=== PATIENT | female | born 1945 | race Caucasian/White ===

== ENCOUNTER → 2016-05-21 | Outpatient (CLI) | payer OTHER, MEDICARE ==
--- NOTE | 2016-05-21 12:21 | DI ---
XR CXR 2VW PA/LAT,05/21/2016 11:07 AM: Clinical History: Severe persistent asthma with acute exacerbation. Previous Exam: April 10, 2016 Findings: PA and lateral views of the chest are obtained, and demonstrate clear lungs. The cardiomediastinum an d bony thorax are unremarkable. Impression: Normal chest.
[2016-05-21 12:35] LABS: BASOPHILS # (AUTO) 0.11 10*3/UL; EOSINOPHILS % (AUTO) 12.1 % (0-8); HEMATOCRIT 44.6 % (37.0-47.0); HEMOGLOBIN 15.4 g/dL (12.0-16.0); IMM GRAN % (AUTO) 0.2 % (0-5); IMM GRAN# (AUTO) 0.02 10*3/UL; LYMPHOCYTES # (AUTO) 3.31 10*3/uL; LYMPHOCYTES % (AUTO) 31.2 % (10-50); MEAN CORPUSCULAR HEMOGLOBIN 29.6 PG (27-31); MEAN CORPUSCULAR HGB CONC 34.5 g/dL (33-37); MEAN PLATELET VOLUME 8.9 FL (7.4-12.2); MONOCYTES # (AUTO) 0.58 10*3/UL (0.3-0.8); MONOCYTES % (AUTO) 5.5 % (5-15); NEUTROPHILS # (AUTO) 5.31 10*3/UL; RDW COEFFICIENT OF VARIATION 13.3 % (11.5-14.5); WHITE BLOOD COUNT 10.61 10^3/uL (4.8-10.8)
[2016-05-21 12:36] LABS: PLATELET MORPHOLOGY COMMENT NORMAL MORPHOLOGY (NORM)
[2016-05-21 13:07] LABS: ASPARTATE AMINO TRANSFERASE 27 IU/L (8-39); BILIRUBIN,TOTAL 0.9 mg/dL (0.3-1.2); BLOOD UREA NITROGEN 14 mg/dL (7-22); BUN/CREATININE RATIO 15.55 (6-20); CALCIUM 9.7 mg/dL (8.7-10.7); CHLORIDE 103 meq/L (98-112); CREATININE 0.9 mg/dL (0.50-1.20); EST GLOMERULAR FILTRATION > 60 (>60 ml/min/1.73m(2)); GLUCOSE 88 mg/dL (78-110); POTASSIUM 3.8 meq/L (3.8-5.2); SODIUM 140 meq/L (135-145); TOTAL PROTEIN 7.3 g/dL (6.1-8.0)
[2016-05-21 14:41] LABS: FREE T4 (FREE THYROXINE) 1.85 ng/dL (0.93-1.71)
== END ==
LOC: RAD 11:36
PROVIDERS: ATTEND Nurse Practitioner Family
DX: J45.51 Severe persistent asthma with (acute) exacerbation (principal); E03.9 Hypothyroidism, unspecified; I10 Essential (primary) hypertension; E78.5 Hyperlipidemia, unspecified
CPT/HCPCS: 36415; 71020; 80053; 84439; 84443; 85025; 94060

== ENCOUNTER 2016-07-04 08:40 | Inpatient (IN) | payer OTHER, MEDICARE ==
[2016-07-04] MEDS ORDERED: NORMAL SALINE 10 ML SYRINGE FLUSH IVP PRN (09:25)
[2016-07-04] MEDS ORDERED: IPRATROPIUM/ALBUTEROL SULFATE 3 ML NEB NEB ONE (09:31)
[2016-07-04] MEDS ORDERED: Sodium Chloride 0.9% 2,000 ML PRIMARY IV ONE (09:32)
[2016-07-04] MEDS ORDERED: Levofloxacin 750mg (Premix) 750 MG in Dextrose 1 BAG IV ONE (09:33)
[2016-07-04 09:39] LABS: BASOPHILS # (AUTO) 0.06 10*3/UL; BASOPHILS % (AUTO) 0.5 % (0-1); EOSINOPHILS # (AUTO) 0.59 10*3/UL; EOSINOPHILS % (AUTO) 4.9 % (0-8); HEMATOCRIT 46.1 % (37.0-47.0); HEMOGLOBIN 15.7 g/dL (12.0-16.0); LYMPHOCYTES # (AUTO) 1.03 10*3/uL; MEAN CORPUSCULAR HEMOGLOBIN 30.1 PG (27-31); MEAN CORPUSCULAR HGB CONC 34.1 g/dL (33-37); MEAN CORPUSCULAR VOLUME 88.5 FL (81-99); MEAN PLATELET VOLUME 8.8 FL (7.4-12.2); MONOCYTES # (AUTO) 0.52 10*3/UL (0.3-0.8); MONOCYTES % (AUTO) 4.3 % (5-15); NEUTROPHILS % (AUTO) 81.5 % (50-80); RED BLOOD COUNT 5.21 10^6/uL (4.20-5.40)
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
[2016-07-04 09:50] LABS: BLOOD UREA NITROGEN 13 mg/dL (7-22); BUN/CREATININE RATIO 14.44 (6-20); CALCIUM 9.2 mg/dL (8.7-10.7); EST GLOMERULAR FILTRATION > 60 (>60 ml/min/1.73m(2)); SERUM ALBUMIN 4.3 g/dL (3.5-4.8)
[2016-07-04 10:03] LABS: PLATELET MORPHOLOGY COMMENT NORMAL MORPHOLOGY (NORM); RBC MORPHOLOGY COMMENT NORMAL MORPHOLOGY (NORM); WBC MORPHOLOGY COMMENT NORMAL MORPHOLOGY (NORM)
--- NOTE | 2016-07-04 11:01 | DI ---
XR CXR 2VW PA/LAT,07/04/2016 9:29 AM: Clinical History: Cough, fevers and wheezing. Previous Exam: May 21, 2016 Findings: PA and lateral views of the chest are obtained, and demonstrates silhouetting of the left heart borde r. There is also a density seen on lateral view anteriorly. There is no evidence of effusion. The cardiomediastinum and bony thorax are unremarkable. Impression: Left lingular pneumonia.
--- NOTE | 2016-07-04 11:06 | EKG ---
[address] [address] Measurements Intervals [place] Rate: 115 P: 78 MN: 197 QRS: 76 QRSD: 82 T: 68 QT: 320 QTc: 388 Interpretive Statements SINUS TACHYCARDIA ABNORMAL RHYTHM ECG ST CHANGE OF EARLY REPOLARIZATION No previous ECG available for comparison Electronically Signed On 07-04-16 13:17:49 MDT by Michael Cesar [id number]
[2016-07-04] MEDS ORDERED: LIDOCAINE W/ SODIUM BICARB 0.5 ML SYR SUBD PRN (11:49)
[2016-07-04] MEDS: Sodium Chloride 0.9% 1,000 ML IV SCH (12:08)
--- NOTE | 2016-07-04 12:17 | PDOC ---
History and Physical - History of Present Illness Date and Time of Service: 07/04/2016 12:17 PM Chief Complaint: Cough of one-week duration, shortness of breath started last night History of Present Illness: This is a 71 years old female with medical history significant for history of asthma, hypertension, hypothyroidism and hyperlipidemia who came into the hospital with history of cough that started a week ago with some phlegm production described as green, last night things got worse with worsening shortness of breath and some tightness in the chest and because of that she came into the ER. Down in the ER it was noticed that she was febrile, chest x-ray showed lingual pneumonia she was given antibiotics and breathing treatment and she was admitted. There is no chest pain, no PND and no leg swelling. She did say that she was started on new medication budesonide which she tried the first dosage last night and she didn't like the effect of it. Past Medical History Medical History: 1. Hypertension. 2. Hypothyroidism. 3. Hyperlipidemia. 4. Allergic rhinitis. 5. Asthma Surgical History: 1. Cholecystectomy. 2. Total abdominal hysterectomy and bilateral salpingo-oophorectomy. 3. Sinus surgery Pertinent Family History: Mother had coronary artery disease, sister and father has asthma Past Social History: She smoked in college, occasionally drink, no drugs. Tobacco Use: Never Smoker Substance Use Type: None Alcohol Use: Rarely Medication / Allergies Home Medications: Home Medications Medication Instructions Recorded Confirmed Type Lansoprazole [Prevacid] 1 cap PO QD PRN #90 capsule 03/29/14 07/04/16 Clinic Trazodone HCl 1 tab PO HS #30 tab 03/29/14 07/04/16 Clinic Triamcinolone Acetonide [Nasacort] 2 spr NS QD #3 bottle 03/29/14 07/04/16 Clinic Fluticasone/Salmeterol [Advair Hfa] 2 puff INH BID #3 inhaler 04/28/15 07/04/16 Clinic Lisinopril 1 tab PO DAILY #90 tab 03/19/16 07/04/16 Clinic Pravastatin Sodium [Pravachol] 1 tab PO QHS #90 tab 03/19/16 07/04/16 Clinic Albuterol Neb Soln 0.021% 1 each NEB Q4H PRN #30 unit 04/10/16 07/04/16 Clinic Levothyroxine Sodium 1 tab PO QOD #45 tab 05/21/16 07/04/16 Clinic Albuterol Sulfate [Proair Hfa] 2 puff INH Q4-6H #3 inhaler 05/22/16 07/04/16 Clinic Allergies/Adverse Reactions: Allergies Allergy/AdvReac Type Severity Reaction Status Date / Time amoxicillin trihydrate Allergy Intermediate hives Verified 07/04/16 09:13 [From Augmentin] potassium clavula Allergy Intermediate hives Verified 07/04/16 09:13 *RETIRED-12/20/11 [From Augmentin] Sulfa (Sulfonamide Allergy Mild RASH Verified 07/04/16 09:13 Antibiotics) Review of Systems - Review of Systems All Systems: Reviewed & No Additional Complaints Except as Stated Exam - Vitals Vital Signs: Vital Signs Temperature 101.5 F Temperature Source Temporal Artery Scan Pulse Rate 104 Respiratory Rate 22 Blood Pressure 110/63 Pulse Ox 94 Weight 190 lb 12.8 oz - General General Appearance: POSITIVE: No Acute Distress, Obese - Head Head Exam: POSITIVE: Normal Inspection, Atraumatic - Eye Eye Exam: POSITIVE: Normal Appearance - ENT ENT Exam: POSITIVE: Normal Exam - Neck Neck Exam: POSITIVE: Normal Inspection - Respiratory Additional Respiratory Exam Details: There is decreased air entry with minimal wheeze. - Cardiovascular Cardiovascular Exam: POSITIVE: RRR - GI/Abdominal GI/Abdominal Exam: POSITIVE: Normal Bowel Sounds, Non Tender, Non Distended, Soft - Rectal Rectal Exam: POSITIVE: Deferred - External Exam: POSITIVE: Deferred - Extremities Extremities Exam: POSITIVE: Normal Inspection - Back Back Exam: POSITIVE: Normal Inspection - Neurological Neurological Exam: POSITIVE: Alert, Oriented x 3, CN II-XII Intact, Moves All Extremities Equally - Psychiatric Psychiatric Exam: POSITIVE: Normal Affect - Integumentary Integumentary Exam: POSITIVE: Normal Color Results - Labs CBC and BMP: 07/04/16 09:15 07/04/16 09:15 - EKG Data -: EKG Interpreted by Me Rate: Tachycardia - Imaging Status: Report Reviewed by Me (Chest x-ray showed left lingual pneumonia) Assessment and Plan - Patient Problems (1) LLL pneumonia Current Visit: Yes Status: Acute Comment: She was started on antibiotics will continue with antibiotics. Qualifiers: Pneumonia type: due to unspecified organism Qualifier Code(s): (J18.1) Lobar pneumonia, unspecified organism (2) Asthma Current Visit: Yes Status: Acute Comment: With her history of asthma we'll continue the bronchodilator treatment and I think I'll add some steroid in addition to the antibiotics (3) Hypertension Current Visit: Yes Status: Acute Comment: Same medications (4) Hypothyroidism Current Visit: Yes Status: Acute Comment: Same med (5) Hyperlipidemia Current Visit: Yes Status: Acute Comment: Same med
[2016-07-04] MEDS: methylPREDNISolone 40 MG/1 ML VIAL IVP SCH ×2 (12:32→20:34)
[2016-07-04] MEDS: ALBUTEROL SULFATE 2.5 MG/3 ML NEB SCH ×2 (14:51→19:33)
[2016-07-04] MEDS: FLUTICASONE INH SCH (20:15)
[2016-07-04] MEDS: SALMETEROL INH SCH (20:15)
[2016-07-04] MEDS: Pravastatin 80mg Tab PO SCH (20:34)
[2016-07-04] MEDS: traZODone Tab 50 MG TAB PO SCH (20:34)
[2016-07-04] MEDS: Montelukast Tab 10 MG TAB PO SCH (20:34)
[2016-07-05] MEDS: Sodium Chloride 0.9% 1,000 ML IV SCH (01:55)
[2016-07-05] MEDS: methylPREDNISolone 40 MG/1 ML VIAL IVP SCH ×3 (04:27→20:08)
[2016-07-05] MEDS: LEVOTHYROXINE 137 MCG TABLET PO SCH (05:35)
[2016-07-05] MEDS: ALBUTEROL SULFATE 2.5 MG/3 ML NEB SCH ×4 (06:44→18:49)
[2016-07-05] MEDS: SALMETEROL INH SCH ×2 (06:52→18:49)
[2016-07-05] MEDS: FLUTICASONE INH SCH ×2 (06:52→18:49)
[2016-07-05] MEDS: LISINOPRIL 10 MG TABLET PO SCH (08:09)
[2016-07-05] MEDS: TRIAMCINOLONE ACETONIDE NS SCH (08:09)
[2016-07-05] MEDS ORDERED: Levofloxacin 750mg (Premix) 750 MG in Dextrose 1 BAG IV SCH (09:00)
[2016-07-05 10:54] LABS: BASOPHILS # (AUTO) 0.01 10*3/UL; BASOPHILS % (AUTO) 0.1 % (0-1); EOSINOPHILS # (AUTO) 0 10*3/UL; EOSINOPHILS % (AUTO) 0 % (0-8); HEMOGLOBIN 13.8 g/dL (12.0-16.0); LYMPHOCYTES # (AUTO) 0.83 10*3/uL; MEAN CORPUSCULAR HEMOGLOBIN 29.7 PG (27-31); MEAN CORPUSCULAR HGB CONC 33.7 g/dL (33-37); MEAN CORPUSCULAR VOLUME 88.4 FL (81-99); MEAN PLATELET VOLUME 8.8 FL (7.4-12.2); MONOCYTES # (AUTO) 0.54 10*3/UL (0.3-0.8); NEUTROPHILS # (AUTO) 12.17 10*3/UL; NEUTROPHILS % (AUTO) 89.4 % (50-80); RED BLOOD COUNT 4.64 10^6/uL (4.20-5.40)
[2016-07-05 10:55] LABS: PLATELET MORPHOLOGY COMMENT NORMAL MORPHOLOGY (NORM); RBC MORPHOLOGY COMMENT NORMAL MORPHOLOGY (NORM); WBC MORPHOLOGY COMMENT NORMAL MORPHOLOGY (NORM)
[2016-07-05 11:35] LABS: CALCIUM 9.1 mg/dL (8.7-10.7); SERUM ALBUMIN 3.9 g/dL (3.5-4.8)
--- NOTE | 2016-07-05 12:51 | PDOC(PROG) ---
Interval History: Patient had a good night's sleep she still has pretty severe expiratory wheezes she does have a history of asthma but has not been on an inhaler to requiring some oxygen Objective : Data - Labs CBC and BMP: 07/05/16 10:50 07/05/16 10:50 Labs - Last 24 Hours: Laboratory Results 07/05/16 Range/Units 10:50 WBC 13.60 H (4.8-10.8) 10^3/uL RBC 4.64 (4.20-5.40) 10^6/uL Hgb 13.8 (12.0-16.0) g/dL Hct 41.0 (37.0-47.0) % MCV 88.4 (81-99) FL MCH 29.7 (27-31) PG MCHC 33.7 (33-37) g/dL RDW Std Deviation 42.1 (39-50) fL RDW Coeff of [place]sey 13.3 (11.5-14.5) % Plt Count 204 (140-350) 10*3/uL MPV 8.8 (7.4-12.2) FL Immature Gran % (Auto) 0.4 (0-5) % Neut % (Auto) 89.4 H (50-80) % Lymph % (Auto) 6.1 L (10-50) % [place] % (Auto) 4.0 L (5-15) % Eos % (Auto) 0 (0-8) % Baso % (Auto) 0.1 (0-1) % Immature Gran # (Auto) 0.05 10*3/UL Neut # (Auto) 12.17 10*3/UL Lymph # (Auto) 0.83 10*3/uL [place] # (Auto) 0.54 (0.3-0.8) 10*3/UL Eos # (Auto) 0 10*3/UL Baso # (Auto) 0.01 10*3/UL WBC Morphology Comment Normal morphology (NORM) Plt Morphology Comment Normal morphology (NORM) RBC Morph Comment Normal morphology (NORM) Sodium 139 (135-145) meq/L Potassium 3.9 (3.8-5.2) meq/L Chloride 108 (98-112) meq/L Carbon Dioxide 18 L (23-33) meq/L Anion Gap 13 (5-20) BUN 15 (7-22) mg/dL Creatinine 1.0 (0.50-1.20) mg/dL Estimated GFR 55 (>60 ml/min/1.73m(2)) BUN/Creatinine Ratio 15.00 (6-20) Glucose 272 H (78-110) mg/dL Calculated Osmolality 298.0 H (267-292) mOsm/kg Calcium 9.1 (8.7-10.7) mg/dL Total Bilirubin 0.6 (0.3-1.2) mg/dL AST 22 (8-39) IU/L ALT 13 D (9-52) IU/L Alkaline Phosphatase 74 (38-126) IU/L Total Protein 6.8 (6.1-8.0) g/dL Albumin 3.9 (3.5-4.8) g/dL Globulin 2.9 (2.50-4.10) g/dL Albumin/Globulin Ratio 1.30 (1.3-2.0) mg/g Objective : Exam - General General Appearance: Cooperative - Head Head Exam: Normal Inspection - Eye Eye Exam: Normal Appearance - Respiratory Additional Respiratory Exam Details: Bilateral expiratory wheezes - Cardiovascular Cardiovascular Exam: RRR, No Murmur, No Clicks, No Gallops - GI/Abdominal GI/Abdominal Exam: Normal Bowel Sounds, Non Tender, Non Distended Assessment and Plan - Patient Problems (1) Asthma Current Visit: Yes Status: Acute Comment: This very nice 71-year-old female who also has seen core feeder in the past they gave her an inhaler but she has never used so now she is on Advair IV steroids and antibiotics also order a CT scan of her chest she has a smoking history and multiple asthma exacerbations (2) LLL pneumonia Current Visit: Yes Status: Acute Comment: Continue Levaquin patient is not ready to be discharged home most likely have to spend another night here in the hospital she was wheezing and WBCs are elevated Qualifiers: Pneumonia type: due to unspecified organism Qualifier Code(s): (J18.1) Lobar pneumonia, unspecified organism
--- NOTE | 2016-07-05 17:10 | DI ---
CT CTA CHEST NONCORONARY W/WO,07/05/2016 11:13 AM: Clinical History: Shortness of breath. Previous Exam: None at this facility. Findings: Multiple helically acquired CT images are obtained through the chest following a the intravenous admi nistration of 75 mL of Isovue 300, and demonstrate mild subsegmental atelectasis in the left lingula. The upper abdomen is unremarkable. Pulmonary arteries are normal without filling defect or truncation to suggest pulmonary embolism. There is mild scarring within the lung apices. Skeletal structures are unremarkable. There is mild lymphadenopathy within the mediastinum. Impression: 1. No evidence of pulmonary embolism.
[2016-07-05] MEDS: Montelukast Tab 10 MG TAB PO SCH (20:07)
[2016-07-05] MEDS: Pravastatin 80mg Tab PO SCH (20:07)
[2016-07-05] MEDS: NORMAL SALINE 10 ML SYRINGE FLUSH IVP PRN (20:09)
[2016-07-05] MEDS: traZODone Tab 50 MG TAB PO SCH (21:15)
[2016-07-06] MEDS: NORMAL SALINE 10 ML SYRINGE FLUSH IVP PRN (04:49)
[2016-07-06] MEDS: methylPREDNISolone 40 MG/1 ML VIAL IVP SCH (04:49)
[2016-07-06] MEDS: LEVOTHYROXINE 137 MCG TABLET PO SCH (05:18)
[2016-07-06 05:52] LABS: BASOPHILS # (AUTO) 0.01 10*3/UL; BASOPHILS % (AUTO) 0.1 % (0-1); EOSINOPHILS # (AUTO) 0 10*3/UL; EOSINOPHILS % (AUTO) 0 % (0-8); HEMATOCRIT 40.5 % (37.0-47.0); HEMOGLOBIN 13.5 g/dL (12.0-16.0); LYMPHOCYTES # (AUTO) 0.99 10*3/uL; MEAN CORPUSCULAR HGB CONC 33.3 g/dL (33-37); MEAN PLATELET VOLUME 9.1 FL (7.4-12.2); MONOCYTES % (AUTO) 4.2 % (5-15); NEUTROPHILS # (AUTO) 17.36 10*3/UL; NEUTROPHILS % (AUTO) 90.2 % (50-80)
[2016-07-06 05:56] LABS: PLATELET MORPHOLOGY COMMENT NORMAL MORPHOLOGY (NORM); WBC MORPHOLOGY COMMENT NORMAL MORPHOLOGY (NORM)
[2016-07-06 05:57] LABS: RBC MORPHOLOGY COMMENT NORMAL MORPHOLOGY (NORM)
[2016-07-06 06:07] LABS: BLOOD UREA NITROGEN 24 mg/dL (7-22); CALCIUM 8.8 mg/dL (8.7-10.7); EST GLOMERULAR FILTRATION > 60 (>60 ml/min/1.73m(2)); SERUM ALBUMIN 3.6 g/dL (3.5-4.8)
[2016-07-06] MEDS: ALBUTEROL SULFATE 2.5 MG/3 ML NEB SCH ×4 (06:46→19:25)
[2016-07-06] MEDS: SALMETEROL INH SCH ×2 (06:47→19:25)
[2016-07-06] MEDS: FLUTICASONE INH SCH ×2 (06:47→19:25)
[2016-07-06] MEDS ORDERED: Sodium Chloride 0.9% 500 ML IV ONE (09:00)
[2016-07-06] MEDS ORDERED: Levofloxacin 750mg (Premix) 750 MG in Dextrose 1 BAG IV SCH (09:00)
[2016-07-06] MEDS: predniSONE Tab 20 MG TAB PO SCH (09:11)
[2016-07-06] MEDS: LISINOPRIL 10 MG TABLET PO SCH (09:11)
[2016-07-06] MEDS: TRIAMCINOLONE ACETONIDE NS SCH (09:16)
--- NOTE | 2016-07-06 09:54 | DI ---
CT ABD W/CN AND PELVIS W/CN,07/06/2016 9:05 AM: Clinical History: Right upper quadrant pain Previous Exam: None at this facility. Findings: Multiple helically acquired CT images are obtained through the abdomen and pelvis following the intra venous administration of 80 mL of Omnipaque 300, and demonstrate some mild subsegmental atelectasis i n the lung bases. The liver is normal. The gallbladder is not seen. The common bile duct is normal in caliber. The pancreas, adrenals and spleen are unremarkable. There is no mesenteric nor retroperitoneal lymphadenopathy. The appendix is normal. The urinary bladder is decompressed, but grossly normal. Impression: 1. No acute intra-abdominal pathology. 2. Inadequate evaluation of the gallbladder as this was either decompressed, or surgically absent.
--- NOTE | 2016-07-06 10:17 | EKG ---
[address] [address] Measurements Intervals [place] Rate: 87 P: 44 MO: 203 QRS: 28 QRSD: 82 T: 43 QT: 358 QTc: 403 Interpretive Statements SINUS RHYTHM Compared to ECG 07/04/2016 09:05:53 Sinus tachycardia no longer present Early repolarization no longer present Electronically Signed On 07-06-16 11:14:17 MDT by Michael Cesar [id number]
--- NOTE | 2016-07-06 11:44 | PDOC(PROG) ---
Interval History: Patient stated she has some pain under her right breast on physical exam when I push on it and it seems to appear to be musculoskeletal and I believe from her asthma exacerbation CT scan of the chest abdomen and pelvis were all negative no PE troponins are negative EKG no acute changes. No nausea no vomiting patient still wheezing Objective : Data - Labs CBC and BMP: 07/06/16 05:28 07/06/16 05:28 Labs - Last 24 Hours: Laboratory Results 07/06/16 07/06/16 Range/Units 05:28 10:15 WBC 19.23 H (4.8-10.8) 10^3/uL RBC 4.50 (4.20-5.40) 10^6/uL Hgb 13.5 (12.0-16.0) g/dL Hct 40.5 (37.0-47.0) % MCV 90.0 (81-99) FL MCH 30.0 (27-31) PG MCHC 33.3 (33-37) g/dL RDW Std Deviation 44.3 (39-50) fL RDW Coeff of [place] 13.7 (11.5-14.5) % Plt Count 216 (140-350) 10*3/uL MPV 9.1 (7.4-12.2) FL Immature Gran % (Auto) 0.4 (0-5) % Neut % (Auto) 90.2 H (50-80) % Lymph % (Auto) 5.1 L (10-50) % [place] % (Auto) 4.2 L (5-15) % Eos % (Auto) 0 (0-8) % Baso % (Auto) 0.1 (0-1) % Immature Gran # (Auto) 0.07 10*3/UL Neut # (Auto) 17.36 10*3/UL Lymph # (Auto) 0.99 10*3/uL [place] # (Auto) 0.80 (0.3-0.8) 10*3/UL Eos # (Auto) 0 10*3/UL Baso # (Auto) 0.01 10*3/UL WBC Morphology Comment Normal morphology (NORM) Plt Morphology Comment Normal morphology (NORM) RBC Morph Comment Normal morphology (NORM) Sodium 137 (135-145) meq/L Potassium 4.5 (3.8-5.2) meq/L Chloride 107 (98-112) meq/L Carbon Dioxide 23 (23-33) meq/L Anion Gap 7 (5-20) BUN 24 H (7-22) mg/dL Creatinine 0.8 (0.50-1.20) mg/dL Estimated GFR > 60 (>60 ml/min/1.73m(2)) BUN/Creatinine Ratio 30.00 H (6-20) Glucose 150 H (78-110) mg/dL Calculated Osmolality 290.0 (267-292) mOsm/kg Calcium 8.8 (8.7-10.7) mg/dL Total Bilirubin 0.6 (0.3-1.2) mg/dL AST 19 (8-39) IU/L ALT 15 (9-52) IU/L Alkaline Phosphatase 67 (38-126) IU/L Troponin I < 0.012 (< 0.040) ng/mL Total Protein 6.5 (6.1-8.0) g/dL Albumin 3.6 (3.5-4.8) g/dL Globulin 2.9 (2.50-4.10) g/dL Albumin/Globulin Ratio 1.20 L (1.3-2.0) mg/g Objective : Exam - General General Appearance: Cooperative - Respiratory Additional Respiratory Exam Details: Bilateral expiratory wheezes slightly improved from yesterday but still present very tight - Cardiovascular Cardiovascular Exam: RRR, No Murmur, No Clicks, No Gallops - GI/Abdominal GI/Abdominal Exam: Normal Bowel Sounds, Non Distended, Soft Additional GI/Abdominal Exam Details: Tenderness under her right breast musculoskeletal skeleton may be costochondritis - Extremities Extremities Exam: No Clubbing Present, No Edema Present Assessment and Plan - Patient Problems (1) Asthma Current Visit: Yes Status: Acute Comment: Asthma exacerbation continue by mouth steroids and neb treatments and inhalers CT scan of the chest believe does not reveal pneumonia and just atelectasis I believe the patient had bronchitis with the asthma exacerbation (2) LLL pneumonia Current Visit: Yes Status: Acute Comment: No infiltrate on CT scan most likely bronchitis Qualifiers: Pneumonia type: due to unspecified organism Qualifier Code(s): (J18.1) Lobar pneumonia, unspecified organism
[2016-07-06] MEDS: BUDESONIDE 0.5 MG/2 ML NEB SCH (19:25)
[2016-07-06] MEDS: traZODone Tab 50 MG TAB PO SCH (20:06)
[2016-07-06] MEDS: Pravastatin 80mg Tab PO SCH (20:06)
[2016-07-06] MEDS: Montelukast Tab 10 MG TAB PO SCH (20:06)
[2016-07-07 04:57] VITALS: RESP 20
[2016-07-07] MEDS: LEVOTHYROXINE 137 MCG TABLET PO SCH ×2 (05:17→06:34)
[2016-07-07] MEDS: ALBUTEROL SULFATE 2.5 MG/3 ML NEB SCH (06:24)
[2016-07-07] MEDS: BUDESONIDE 0.5 MG/2 ML NEB SCH (06:25)
[2016-07-07] MEDS: FLUTICASONE INH SCH (06:26)
[2016-07-07] MEDS: SALMETEROL INH SCH (06:26)
[2016-07-07 06:49] VITALS: TEMP 97.3
[2016-07-07 07:44] LABS: BASOPHILS # (AUTO) 0.02 10*3/UL; BASOPHILS % (AUTO) 0.1 % (0-1); EOSINOPHILS # (AUTO) 0.01 10*3/UL; EOSINOPHILS % (AUTO) 0.1 % (0-8); HEMATOCRIT 42.2 % (37.0-47.0); HEMOGLOBIN 14.1 g/dL (12.0-16.0); LYMPHOCYTES # (AUTO) 2.53 10*3/uL; MEAN CORPUSCULAR HGB CONC 33.4 g/dL (33-37); MEAN CORPUSCULAR VOLUME 89.8 FL (81-99); MEAN PLATELET VOLUME 8.6 FL (7.4-12.2); MONOCYTES # (AUTO) 1.04 10*3/UL (0.3-0.8); MONOCYTES % (AUTO) 7.7 % (5-15); NEUTROPHILS # (AUTO) 9.85 10*3/UL; NEUTROPHILS % (AUTO) 72.5 % (50-80)
[2016-07-07 07:47] LABS: PLATELET MORPHOLOGY COMMENT NORMAL MORPHOLOGY (NORM); RBC MORPHOLOGY COMMENT NORMAL MORPHOLOGY (NORM); WBC MORPHOLOGY COMMENT NORMAL MORPHOLOGY (NORM)
[2016-07-07 07:56] LABS: BLOOD UREA NITROGEN 22 mg/dL (7-22); BUN/CREATININE RATIO 24.44 (6-20); CALCIUM 8.7 mg/dL (8.7-10.7); EST GLOMERULAR FILTRATION > 60 (>60 ml/min/1.73m(2)); MAGNESIUM 2.3 mg/dL (1.6-2.4); SERUM ALBUMIN 3.7 g/dL (3.5-4.8)
[2016-07-07] MEDS: LISINOPRIL 10 MG TABLET PO SCH (08:18)
[2016-07-07] MEDS: TRIAMCINOLONE ACETONIDE NS SCH (08:18)
[2016-07-07] MEDS: predniSONE Tab 20 MG TAB PO SCH (08:18)
--- NOTE | 2016-07-07 08:49 | DCSUMMARY ---
Hospitalization Summary Hospital Course: Final Discharge Diagnosis: Current Visit Problems Problem Status Priority Diagnosed Code Asthma Acute J45.909 Hyperlipidemia Acute E78.5 Hypertension Acute I10 Hypothyroidism Acute E03.9 LLL pneumonia Acute J18.1 Diagnostic Data, Laboratory Data, and Procedures of Signifigance: Past Medical History Medical History: 1. Hypertension. 2. Hypothyroidism. 3. Hyperlipidemia. 4. Allergic rhinitis. 5. Asthma Surgical History: 1. Cholecystectomy. 2. Total abdominal hysterectomy and bilateral salpingo-oophorectomy. 3. Sinus surgery Pertinent Family History: Mother had coronary artery disease, sister and father has asthma Past Social History: She smoked in college, occasionally drink, no drugs. Tobacco Use: Never Smoker Substance Use Type: None Alcohol Use: Rarely Course of Hospitalization: This very nice 71-year-old female asked medical history for hypertension, asthma , hypothyroidism and hyperlipidemia with the productive cough and ultimately diagnosed with the asthma exacerbation and right and lingular pneumonia at this point according to the CAT scan that done I am not sure she does have pneumonia but definitely bronchitis she has gotten much better the wheezing is minimal she is now on 40 of prednisone a day for the next 5 days she will be using her inhaler twice a day plus Pulmicort dual nebs. She really wants to go home she will finish her 3 day course of Levaquin I also gave her 2 days worth of the potassium since it was marginal I've instructed her to come back to the ER if her wheezing worsens her lungs get tight. She did not tell us that she wears a CPAP at home she has not been aware when here and during the day she does not require oxygen desats with when she is ambulating according to general respiratory therapy that performed her her desat walk study she will be discharged home in stable and improved condition. She says she feels much better she feels her normal self and is ready to be discharged. She did complain of a pain under her right breast but on palpation it is musculoskeletal in CT scan of her chest abdomen and pelvis are within normal limits troponin was negative as well as EKG On the date of discharge, the patient was examined: Gen.: No acute distress, alert, nontoxic Heart: Regular rate and rhythm, no murmurs, clicks, gallops, or rubs Lungs: Minimal wheezing bilaterally on x-ray on expiration but significantly improved compared to the first that I saw her breathing is nonlabored Abdomen/GI: Normal tones on auscultation, soft, nontender, nondistended Musculoskeletal/extremities: No clubbing, cyanosis, or edema Vitals reviewed and are listed below Assessment and Plan: 1. As per discharge assessments above 2. Disposition: Home 3. Condition on discharge, stable and improved. 4. Diet: regular diet 5. Activities: resume normal activities as tolerated try to stay away from triggers that exacerbate your asthma 6. Follow-Up: 1. PCP she will see her primary care physician before you being released to go back to work 2. 7. Medications at the Time of Discharge: Home Medications Medication Instructions Recorded Confirmed Type Lansoprazole [Prevacid] 1 cap PO QD PRN #90 capsule 03/29/14 07/04/16 Clinic Trazodone HCl 1 tab PO HS #30 tab 03/29/14 07/04/16 Clinic Triamcinolone Acetonide [Nasacort] 2 spr NS QD #3 bottle 03/29/14 07/04/16 Clinic Fluticasone/Salmeterol [ADVAIR HFA] 2 puff INH BID #3 inhaler 04/28/15 07/04/16 Clinic Lisinopril 1 tab PO DAILY #90 tab 03/19/16 07/04/16 Clinic Pravastatin Sodium [Pravachol] 1 tab PO QHS #90 tab 03/19/16 07/04/16 Clinic Albuterol Neb Soln 0.021% 1 each NEB Q4H PRN #30 unit 04/10/16 07/04/16 Clinic Levothyroxine Sodium 1 tab PO QOD #45 tab 05/21/16 07/04/16 Clinic Albuterol Sulfate [Proair Hfa] 2 puff INH Q4-6H #3 inhaler 05/22/16 07/04/16 Clinic Montelukast Sodium 10 mg PO BEDTIME 07/04/16 07/04/16 History Levofloxacin Tab [Levaquin Tab] 750 mg PO DAILY #3 tab 07/07/16 Rx Potassium Chloride [Klor-Con] 40 meq PO BID 2 Days 07/07/16 Rx predniSONE Tab [Deltasone Tab] 40 mg PO DAILY 5 Days 07/07/16 Rx 8. Time, care, counseling and coordination of care for this discharge is greater than 30 minutes. Exam - Vitals Vital Signs: Vital Signs Temperature 97.3 F Temperature Source Temporal Artery Scan Pulse Rate [Apical] 96 Pulse Rate [Pulse Oximeter] 76 Pulse Rate 88 Respiratory Rate 20 Blood Pressure [Left Arm] 145/78 Blood Pressure [Left Arm] 127/52 Blood Pressure 110/63 Pulse Ox 92 Oxygen Flow Rate 1 Oxygen Delivery Method Room Air Height 5 ft 6 in Weight 89.584 kg Patient Problems - Patient Problem List (1) Asthma Current Visit: Yes Status: Acute (2) LLL pneumonia Current Visit: Yes Status: Acute Qualifiers: Pneumonia type: due to unspecified organism Qualifier Code(s): (J18.1) Lobar pneumonia, unspecified organism
[2016-07-07] MEDS ORDERED: POTASSIUM CHLORIDE 20 MEQ TAB PO SCH (09:00)
== END 2016-07-07 10:16 | disposition home or self-care (01) | DRG 195 ==
LOC: ER 08:40 → MED/SURG 10:52
PROVIDERS: ADMIT Internal Medicine; ATTEND Internal Medicine
DX: J18.9 Pneumonia, unspecified organism (principal); J45.909 Unspecified asthma, uncomplicated; E78.5 Hyperlipidemia, unspecified; I10 Essential (primary) hypertension; E03.9 Hypothyroidism, unspecified
CPT/HCPCS: 36415; 71020; 80053; 83605; 83880; 85025; 85610; 87040; 87804; 93005; 93010; 94640; 96361; 96365; 99284 ×2; J7620; 71275; 74177; 83735; 84443; 84484; 87070; 87077; 87186; 87205; 94761; J2920; J7030; J7040; J7512; J7626

== ENCOUNTER → 2016-07-17 | Outpatient (CLI) | payer OTHER, BC | LOC: MMPC 09:00 | PROVIDERS: ATTEND Nurse Practitioner Family | DX: J45.50 Severe persistent asthma, uncomplicated (principal); E78.5 Hyperlipidemia, unspecified; E03.9 Hypothyroidism, unspecified; I10 Essential (primary) hypertension; K21.9 Gastro-esophageal reflux disease without esophagitis | CPT/HCPCS: 99214; G0463 ==

== ENCOUNTER → 2016-09-24 | Outpatient (CLI) | payer OTHER, MEDICARE ==
[2016-09-24 09:24] LABS: BLOOD UREA NITROGEN 18 mg/dL (7-22); CALCIUM 9.1 mg/dL (8.7-10.7); CHOL/HDL RATIO 3.68 RATIO (0-4.0); EST GLOMERULAR FILTRATION > 60 (>60 ml/min/1.73m(2)); GAMMA GLUTAMYL TRANSPEPTIDASE 16 IU/L (8-78); HDL CHOLESTEROL 45 mg/dL (40-150); SERUM CHOLESTEROL 166 mg/dL (120-200)
== END ==
LOC: LAB 08:52
PROVIDERS: ATTEND Nurse Practitioner Family
DX: E78.5 Hyperlipidemia, unspecified (principal); I10 Essential (primary) hypertension; E03.9 Hypothyroidism, unspecified
CPT/HCPCS: 36415; 80048; 82247; 82465; 82550; 82977; 83718; 84075; 84450; 84460; 84478

== ENCOUNTER → 2016-09-27 | Outpatient (CLI) | payer OTHER, MEDICARE | LOC: MMPC 09:00 | PROVIDERS: ATTEND Nurse Practitioner Family | DX: H25.093 Other age-related incipient cataract, bilateral (principal); J45.50 Severe persistent asthma, uncomplicated; J30.2 Other seasonal allergic rhinitis; F32.0 Major depressive disorder, single episode, mild; F41.1 Generalized anxiety disorder; E78.5 Hyperlipidemia, unspecified; I10 Essential (primary) hypertension; K21.9 Gastro-esophageal reflux disease without esophagitis; E03.9 Hypothyroidism, unspecified; M65.341 Trigger finger, right ring finger | CPT/HCPCS: 99214; G0463 ==

== ENCOUNTER 2017-10-03 13:25 | Observation (INO) ==
[2017-10-03] MEDS ORDERED: THROMBIN (BOVINE) 20,000 UNIT KIT TOPICAL ONE (13:26)
[2017-10-03] MEDS ORDERED: Vancomycin Inj 1gm vial ONE (13:38)
[2017-10-03] MEDS ORDERED: Sodium Chloride 0.9% 250 ML IV ONE ×2 (13:38→16:20)
[2017-10-03] MEDS ORDERED: LIDOCAINE W/ SODIUM BICARB 0.5 ML SYR SUBD ONE (13:52)
[2017-10-03] MEDS ORDERED: diphenhydrAMINE 50 MG/1 ML VIAL ONE (15:14)
[2017-10-03] MEDS ORDERED: diphenhydrAMINE 50 MG/1 ML VIAL IVP ONE (15:22)
[2017-10-03] MEDS ORDERED: IPRATROPIUM/ALBUTEROL SULFATE 3 ML NEB NEB ONE ×2 (15:35→15:53)
--- NOTE | 2017-10-03 16:12 | EKG ---
[address] [address] Measurements Intervals [place] Rate: 70 P: 45 AR: 236 QRS: 54 QRSD: 83 T: 52 QT: 403 QTc: 423 Interpretive Statements SINUS RHYTHM WITH FIRST DEGREE AV BLOCK POSSIBLE ANTERIOR MYOCARDIAL INFARCTION PROBABLY OLD, MAY BE LEAD POSITIONING Compared to ECG 07/06/2016 10:16:42 First degree AV block now present Myocardial infarct finding now present Electronically Signed On 10-03-17 17:37:38 MDT by Michael Cesar [id number]
[2017-10-03] MEDS ORDERED: MIDAZOLAM 5 MG/1 ML ONE (16:20)
[2017-10-03] MEDS ORDERED: LIDOCAINE MPF 2% - 5 ML (20 MG/1 ML) ONE ×2 (16:20→19:16)
[2017-10-03] MEDS ORDERED: fentaNYL Inj 250 MCG/5 ML VIAL ONE (16:20)
[2017-10-03] MEDS ORDERED: Propofol 1,000 MG/100 ML VIAL IV ONE (16:20)
[2017-10-03] MEDS ORDERED: Lactated Ringers 1,000 ML PRIMARY IV ONE ×2 (16:52→19:04)
[2017-10-03] MEDS ORDERED: BACITRACIN 50,000 UNIT VIAL IRRIG ONE (17:22)
[2017-10-03] MEDS ORDERED: Sodium Chloride 0.9% vial 10 ML ONE (17:22)
[2017-10-03] MEDS ORDERED: SUCCINYLCHOLINE CHLORIDE 20 MG/1 ML - 10 ML ONE (17:30)
[2017-10-03] MEDS ORDERED: HYDROmorphone 2 MG/1 ML ONE (18:27)
--- NOTE | 2017-10-03 19:25 | OPNOTE.NEU ---
Operative Note Surgeon: Benny Connolly MD Data Sme: Cristian Wallace PA-C Procedure Date: 10/03/17 Preoperative Diagnosis: C6-7 Herniated disc with radiculopathy Postoperative Diagnosis: Same Procedure: C6-7 Anterior Cervical Decompression and Fusion. 1. Anterior cervical decompression; . 2. Anterior cervical arthrodesis; (63600). 3. Allograft structural graft placement; . 4. Preparation of bone graft: A. Local autograft, same incision; 25131-30. B. [place] of morselized iliac crest autograft, separate incision; . C. [place] of bone marrow aspirate, iliac crest; . D. Addition of osteopromotive calcium compound; allograft DBM; . 5. Anterior Cervical Instrumentation; 02074. 6. Intraoperative microsurgical technique, microscopy; 06637. 7. Intraoperative fluoroscopy, 17511-20-QF. 8. Continuous intraoperative motor and sensory neural monitoring Procedure Codes - Neurosurgery: 47901, 44879, 12643, 38783-40, 30851-13, 17108- 59, 01501-63, 27032-03-EI Estimated Blood Loss (mL): Minimal Fluids: See anesthesia record Complications: None Findings: Herniated disc at C6-7 on the right. Indications for the Procedure: Cervical radiculopathy with triceps weakness Description of Procedure: Procedure(s): We discussed the procedure, risks, advantages and disadvantages of surgical intervention at length. To prevent further pain, disability and potential progression of neurologic deficits, the patient would like to proceed with surgery. INTRODUCTION: After obtaining informed consent, careful consideration of the pre -operative studies and evaluation, the patient asked to proceed with surgery.The patient was taken to the operating room, given an anesthetic, positioned and prepared for surgery. All pressure points were meticulously padded and great care was taken to insure the patient was appropriately positioned to avoid any abnormal strain on the extremities or any other area. The operative region was prepared with iodine solution and isolated aseptically using routine sterile draping. POSITION / APPROACH: The patient was placed in the supine position such that an anterior approach could be taken to the cervical levels. EXPOSURE: A right transverse neck incision at the abnormal level which was confirmed using fluoroscopy was made through skin, subcutaneous fat and the platysma muscle. Using sharp and blunt dissection, the anterior spine was exposed medial to the sternocleidomastoid muscle and carotid sheath and the longus coli muscles were carefully reflected off the vertebrae using electrocautery and a deep self-retaining retractor was place beneath them. Thereafter, distraction pins were place within the vertebral bodies above and below the abnormal levels. The inner space was then distracted to improve exposure during the decompression. DECOMPRESSION: While distracting the interspace, a radical discectomy was performed. After removal of the disk using curettes considerable posterior osteophytosis was encountered particularly on the left and a large disc herniation was identified. The osteophyte was removed using a high speed drill equipped with a manju bur, microsurgical technique and the intraoperative microscope for visualization. There was clear evidence of compression upon the exiting nerve root and spinal cord. The posterior longitudinal ligament was taken down and wide foraminotomies were fashioned on both sides. The epidural space was explored extensively confirming no further compression upon the neural elements. ARTHRODESIS: After the decompression, the height of the inner space was measured and an allograft bone graft was selected which would fit snuggly within the space. The graft was loaded with bone graft which was prepared as described. The graft was placed using the fluoroscope to assess the graft position so that it could be countersunk appropriately. HARVEST / PREPARATION of BONE GRAFT: The "bone graft" was prepared from the patient's own bone derived from the left hip collected by curetting bone from the hip through a separate slab incision(-03047). This morselized bone was admixed with bone marrow aspirate also obtained from the hip (-54002). Autologous local bone which was removed during the decompression through the same incision used for the fusion was stripped of surrounding soft tissues, morselized (-74418) and mixed with osteopromotive calcium compound as well as allograft demineralized bone matrix ([id number]), and this was combined with the previously described hip graft and concentrated bone marrow aspirate to form the "bone graft." ANTERIOR PLATE INSTRUMENTATION: Having completed the decompression and placement of the interbody spacers, an Alphatec Trestle plate was selected which spanned the levels and also could be contoured to the anterior aspect of the patient's cervical spine. Osteophytes along the anterior spine were removed to allow the plate to conform to the spine appropriately. The plate was then secured to the spine using 14 mm screws, all of which were locked into position using the locking mechanism of the plate. Additional bone graft material was placed around the plate and around the implanted spacer within the inner space. NEED FOR WALLPAPER HANGER: Cristian Wallace PA-C, was instrumental throughout the operation to assist with exposure of the neural structures and protect them as the bony elements were removed. He was also instrumental during placement of the implant(s) which often takes more than two hands to perform safely and efficiently. OTHER TOOLS USED / UTILITY: All manipulation of the neural elements was performed using the microscope for visualization. As well, the fluoroscope was used to confirm the levels as indicated as well as to assist during implant placement and later to assess the patient's spinal alignment. There were no intra operative complications. Motor and sensory monitoring was performed throughout the procedure by a certified monitoring plant and maintenance technician in the room in communication with a remote monitoring physician and no abnormal neurological findings were encountered. CLOSURE: The wound was irrigated with copious amounts of antibiotic impregnated saline solution and immaculate hemostasis was achieved using thrombin soaked Gelfoam, bone wax along the bony margins, as well as electrocautery. Surgicel was used to cover the implanted graft and plate. A drain was placed in the pre-vertebral space and tunneled to an exit site lateral to the formed incision. The wound was then closed in anatomical layers using Vicryl suture in the subcutaneous tissue layers followed by Steri-Strips on the skin. EBL: Minimal Drain: Hemovac Complications: None Authenticated by Dr. Connolly electronically 10/03/2017, 19:25.
[2017-10-03] MEDS ORDERED: HYDROcodone-APAP 5 MG -325 MG TABLET PO PRN (19:45)
[2017-10-03] MEDS ORDERED: ACETAMINOPHEN 325 MG TABLET PO PRN (19:45)
[2017-10-03] MEDS ORDERED: MORPHINE SULFATE 2 MG/1 ML IVP PRN (19:45)
[2017-10-03] MEDS ORDERED: DIAZEPAM 5 MG TABLET PO PRN (19:45)
[2017-10-03] MEDS ORDERED: Acetaminophen 1000mg Inj 1,000 MG/100 ML VIAL IV ONE (19:50)
[2017-10-03] MEDS ORDERED: HYDRALAZINE 20 MG/1 ML ONE (19:59)
[2017-10-03] MEDS ORDERED: KETOROLAC 30 MG/1 ML VIAL ONE (20:08)
--- NOTE | 2017-10-03 20:34 | CRNA.PROGR ---
Anesthesia Time - - Start date: 10/03/17 - Procedure/Recovery Time Anesthesia : Time In: 17:37 Anesthesia : Time Out: 19:52 - Other Weight: 80.286 kg Height: 5 ft 6 in Body Mass Index (BMI): 28.5 Physical Status: P2 Anesthesia Type: General Anesthesia : ET
[2017-10-03] MEDS ORDERED: REMIFENTANIL 1 MG/1 ML IV ONE (20:36)
[2017-10-03] MEDS ORDERED: ONDANSETRON 4 MG/2 ML VIAL IVP PRN (20:48)
--- NOTE | 2017-10-03 21:06 | DI ---
EXAM: XR Cervical Spine, 2 or 3 Views CLINICAL HISTORY: ITS.REASON Post op alignment baseline s/p ACDF Physician Notes: Tech Comments: TECHNIQUE: Frontal and lateral views of the cervical spine. COMPARISON: FINDINGS: Vertebrae: Anterior fixation hardware at C6 and C7, intact and in place. No definite fracture. Normal alignment. Disc spaces: No acute findings. No significant narrowing. Soft tissues: Unremarkable. IMPRESSION: No acute findings.
[2017-10-03] MEDS: D5-1/2NS + 20mEq KCL 1,000 ML PRIMARY IV SCH (21:32)
[2017-10-04] MEDS: ceFAZolin Inj 1 GM in Sodium Chloride 0.9% 100 ML IV SCH ×2 (01:36→10:05)
[2017-10-04 05:04] VITALS: RESP 20
[2017-10-04] MEDS ORDERED: ceFAZolin Inj 2gm (Premix) 2 GM/50 ML BAG IV ONE (06:00)
[2017-10-04] MEDS ORDERED: Lactated Ringers 1,000 ML PRIMARY IV ONE (06:00)
[2017-10-04] MEDS: D5-1/2NS + 20mEq KCL 1,000 ML PRIMARY IV SCH (07:34)
--- NOTE | 2017-10-04 08:25 | PDOC(PROG) ---
Subjective Post Op Day: 1 Pain Management: PO Cowan Catheter: No Flatus: Yes Diet: Regular Ambulating: Yes Concerns / Additional Information: Doing well. Arm pain resolved Exam +5/5, Sensation normal Wound clean and dry Drain 20 cc 0500 Will re-check drain later today and remove if acceptable. Discharge after drain removed. Objective : Data - Vital Signs Vital Signs and I&O: Vital Signs - Last Taken Temperature 97.4 F 10/04/17 07:17 Pulse Rate 71 10/04/17 07:17 Respiratory Rate 20 10/04/17 07:17 Blood Pressure 156/56 10/04/17 07:17 Pulse Ox 95 10/04/17 07:17 Intake and Output (24hr x 4 totals) 10/02/17 10/03/17 10/04/17 10/05/17 05:59 05:59 05:59 05:59 Intake Total 5651 / 5651 240 / 240 Output Total 690 / 690 325 / 325 Balance 4961 / 4961 -85 / -85
[2017-10-04 12:13] VITALS: O2SAT 91
[2017-10-04 12:14] VITALS: BP 137/62; TEMP 97.2
--- NOTE | 2017-10-07 09:03 | PTI REPORT ---
Thank you for the referral of Hamida Do. She was seen on 10/04/17 for an inpatient evaluation status post cervical fusion. SUBJECTIVE: The patient is a 72-year-old female. The patient reports she is doing well post surgery. She states she has a pain level of 5/10 (0=no pain, 10=worst pain ) that is a muscular, dull aching pain along her sternum. The patient reports she has a ranch style house with a basement that she uses often. There are 12 stairs down to the basement with a railing. The patient has a at home that will be helping her with ADLs if needed. The patient reports no dizziness or lightheadedness. PAST MEDICAL HISTORY: Past medical history can be found in the patient's medical record. OBJECTIVE FINDINGS: General observations: The patient is connected to hemovac. The patient is alert and oriented. Bed mobility/Transfers: The patient transferred from supine to standing independently and safely. Ambulation: The patient ambulated around nurse's station twice, approximately 300 feet, safely and independently. The patient ascended and descended 12 stairs safely and independently. ASSESSMENT: The patient has met all goals of independent and safe ambulation, stairs, and transfers at this time. Physical Therapy Goals: To be met following discharge from inpatient: Patient will be seen by outpatient physical therapy. TREATMENT PLAN: Patient is safe to discharge as all PT goals are met. INITIAL TREATMENT: Treatment today consisted of the initial evaluation followed by ambulation and stairs. The patient was left supine in bed with call light within reach. Dictated by: RICHAR Sims Supervised by: REYNALDO Shirley
--- NOTE | 2017-10-08 09:15 | OTI REPORT ---
Thank you for the referral of Hamida Do. She was seen on 10/04/17 for an occupational therapy inpatient evaluation status post cervical fusion. SUBJECTIVE: The patient is a 72-year-old female who had a cervical fusion. The patient reports that overall she is doing pretty well. PAST MEDICAL HISTORY: Past medical history can be found in the patient's medical record. OBJECTIVE FINDINGS: Activities of daily living: The patient was able to sit edge of bed and don and doff her socks independently. The patient was able to stand and complete hygiene activities. Range of motion: The patient had within functional limits for active range of motion of bilateral upper extremities. Transfers: The patient was able to complete a toilet transfer with stand by assist. ASSESSMENT: The patient did well. She demonstrates the ability to go home and benefitted from education in swallow exercises as she said she did have difficulty when she was drinking at a slight angle. TREATMENT PLAN: Patient will be discharged from OT as all goals have been met. INITIAL TREATMENT: Treatment today consisted of the initial evaluation. The patient was educated and instructed in her neck precautions as well as swallowing precautions and effortful swallows. JOSE
== END 2017-10-04 13:47 | disposition home or self-care (01) ==
LOC: MED/SURG 13:25 → OR 13:25
PROVIDERS: ADMIT Neurological Surgery; ATTEND Neurological Surgery